=== PATIENT | female | born 1985 ===

== ENCOUNTER 2017-05-17 09:43 | Emergency (ER) | payer BC ==
--- NOTE | 2017-05-17 11:15 | UC ---
Throat Pain/Nasal Kush HPI - HPI Summary HPI Summary: Pt presents with cough, chest congestion, and sore tongue for 1 week. She is currently 37 weeks . Said that she had a fever of 101 yesterday. Has not taken anything OTC. Works at [employer] and says that everyone has been ill with similar symptoms. Denies SOB, chest pain, abdominal pain, N/V/ D/C, or vaginal bleeding. - History of Current Complaint Chief Complaint: UCRespiratory Stated Complaint: SORE THROAT SINUS ISSUE Time Seen by Provider: 05/17/17 11:14 Hx Obtained From: Patient ?: Yes - 37 weeks Onset/Duration: Gradual Onset Severity: Moderate Pain Intensity: 5 Pain Scale Used: 0-10 Numeric Cough: Nonproductive - Allergies/Home Medications Allergies/Adverse Reactions: Allergies Allergy/AdvReac Type Severity Reaction Status Date / Time No Known Allergies Allergy Verified 05/17/17 10:03 Home Medications: Home Medications Acetaminophen [Tylenol] 650 mg PO PRN 05/17/17 [History] PMH/Surg Hx/FS Hx/Imm Hx Previously Healthy: Yes - Surgical History Surgical History: Yes Surgery Procedure, Year, and Place: breast reduction 2001 - Social History Occupation: Employed Full-time Lives: With Family Alcohol Use: None Substance Use Type: None Smoking Status (MU): Never Smoked Tobacco Review of Systems Constitutional: Negative Skin: Negative Eyes: Negative ENT: Nasal Discharge, Sinus Congestion, Sinus Pain/Tenderness, Other - Tongue pain Respiratory: Cough Cardiovascular: Negative Gastrointestinal: Negative All Other Systems Reviewed And Are Negative: Yes Physical Exam Triage Information Reviewed: Yes Appearance: Well-Appearing, Well-Nourished Vital Signs: Initial Vital Signs Temp 98.5 F 05/17/17 09:56 Pulse 106 05/17/17 09:56 Resp 16 05/17/17 09:56 BP 126/60 05/17/17 09:56 Pulse Ox 99 05/17/17 09:56 Vital Signs Reviewed: Yes Eyes: Positive: Conjunctiva Clear. Negative: Conjunctiva Inflamed, Discharge ENT: Positive: Hearing grossly normal, Pharynx normal, Nasal congestion, TMs normal, Uvula midline, Other - Tongue is without lesions or white coating. NTTP.. Negative: Pharyngeal erythema, Nasal drainage, TM bulging, TM dull, TM red, Tonsillar swelling, Tonsillar exudate, Hoarse voice, Sinus tenderness Neck: Positive: Supple, Nontender, No Lymphadenopathy Respiratory: Positive: Chest non-tender, Lungs clear, Normal breath sounds, No respiratory distress, No accessory muscle use Cardiovascular: Positive: RRR, No Murmur, Pulses Normal Neurological: Positive: Alert Psychological: Positive: Age Appropriate Behavior Skin: Negative: rashes Throat Pain/Nasal Course/Dx - Course Course Of Treatment: Suspect viral illness. Pt admits that she has been overworked at work and feels as though she just needs a day or two off of work to rest and she will feel improved. I agree with this plan and will write her off for 2 days. - Differential Dx/Diagnosis Differential Diagnosis/HQI/PQRI: Mononucleosis, Otitis Media, Pharyngitis, Sinusitis, Tonsillitis, URI Provider Diagnoses: Viral URI Discharge - Discharge Plan Condition: Stable Disposition: HOME Patient Education Materials: Sinusitis (ED) Forms: *Work Release Referrals: No Primary Care Phys,NOPCP [Primary Care Provider] - Additional Instructions: If you develop a fever, SOB, chest pain, new or worsening symptoms - please call your PCP or go to the ED.
== END 2017-05-17 11:48 | disposition home or self-care (01) ==
LOC: UCEAST 09:43
DX: J06.9 Acute upper respiratory infection, unspecified (principal)
CPT/HCPCS: 87651; 99201; G0463